=== PATIENT | male | born 1990 | race American Indian/Alaskan Native ===

== ENCOUNTER 2018-09-08 09:46 | Emergency (ER) | payer OTHER ==
--- NOTE | 2018-09-08 13:10 | Emergency Department Report ---
- General Chief Complaint: Upper Respiratory Infection Stated Complaint: SORE THROAT Time Seen by Provider: 09/08/18 13:05 Source: patient Mode of arrival: Ambulatory Limitations: No Limitations - History of Present Illness Initial Comments: Patient is a 28-year-old -[place] male who is complaining of congestion cough sore throat and facial pain for approximately 1 week. Patient states cough is productive of green sputum. MD Complaint: cough, sore throat, nasal congestion, sinus pain (right sided) -: week(s) (1) Severity scale (0 -10): 5 Quality: aching Consistency: constant Improves With: nothing Associated Symptoms: chills, headache, rhinorrhea, nasal congestion, cough. denies: fever, myalgias, diaphoresis, stiff neck, chest pain, shortness of breath, abdominal pain, nausea, vomiting, diarrhea, rash, confusion, right sweats, weight loss - Related Data Previous Rx's Medication Instructions Recorded Last Taken Type Amoxicillin/Potassium Clav 1 each PO BID #14 tablet 09/08/18 Unknown Rx [Augmentin 875-125 Tablet] Fluticasone [Flonase] 1 spray NS QDAY #1 bottle 09/08/18 Unknown Rx predniSONE [Deltasone] 20 mg PO QDAY #5 tab 09/08/18 Unknown Rx traMADol [Ultram] 50 mg PO Q6HR PRN #12 tablet 09/08/18 Unknown Rx Allergies Allergy/AdvReac Type Severity Reaction Status Date / Time No Known Allergies Allergy Unverified 09/08/18 09:48 ED Review of Systems ROS: Stated complaint: SORE THROAT Other details as noted in HPI Comment: All other systems reviewed and negative ED Past Medical Hx - Past Medical History Previous Medical History?: No - Surgical History Past Surgical History?: No - Social History Smoking Status: Never Smoker Substance Use Type: None - Medications Home Medications: Home Medications Medication Instructions Recorded Confirmed Last Taken Type Amoxicillin/Potassium Clav 1 each PO BID #14 tablet 09/08/18 Unknown Rx [Augmentin 875-125 Tablet] Fluticasone [Flonase] 1 spray NS QDAY #1 bottle 09/08/18 Unknown Rx predniSONE [Deltasone] 20 mg PO QDAY #5 tab 09/08/18 Unknown Rx traMADol [Ultram] 50 mg PO Q6HR PRN #12 tablet 09/08/18 Unknown Rx ED Physical Exam - General Limitations: No Limitations General appearance: alert, in no apparent distress - Head Head exam: Present: atraumatic, normocephalic - Eye Eye exam: Present: normal appearance - ENT ENT exam: Present: mucous membranes moist, other (right tenderness is mild) - Neck Neck exam: Present: normal inspection - Respiratory Respiratory exam: Present: normal lung sounds bilaterally. Absent: respiratory distress, wheezes, rales, rhonchi - Cardiovascular Cardiovascular Exam: Present: regular rate, normal rhythm. Absent: systolic murmur, diastolic murmur, rubs, gallop - GI/Abdominal GI/Abdominal exam: Present: soft, normal bowel sounds - Rectal Rectal exam: Present: deferred - Extremities Exam Extremities exam: Present: normal inspection - Back Exam Back exam: Present: normal inspection - Neurological Exam Neurological exam: Present: alert, oriented X3 - Psychiatric Psychiatric exam: Present: normal affect, normal mood - Skin Skin exam: Present: warm, dry, intact, normal color. Absent: rash ED Course Vital Signs 09/08/18 09:51 Temperature 98.5 F Pulse Rate 84 Respiratory 16 Rate Blood Pressure 141/69 O2 Sat by Pulse 97 Oximetry ED Medical Decision Making - Medical Decision Making clinically with acute sinusitis/bronchitis. Patient will be started on S was sent directly from be discharged home. Critical care attestation.: If time is entered above; I have spent that time in minutes in the direct care of this critically ill patient, excluding procedure time. ED Disposition Clinical Impression: Upper respiratory infection Sinusitis Qualifiers: Sinusitis location: unspecified location Chronicity: acute Recurrence: non- recurrent Qualified Code(s): J01.90 - Acute sinusitis, unspecified Disposition: - TO HOME OR SELFCARE Is pt being admited?: No Does the pt Need Aspirin: No Condition: Stable Instructions: Sinusitis (ED) Referrals: DERICK KELLEY MD [Primary Care Provider] - 3-5 Days
== END 2018-09-08 13:54 | disposition home or self-care (01) ==
LOC: ED 09:46
DX: J01.90 Acute sinusitis, unspecified (principal)

== ENCOUNTER 2019-11-16 12:41 | Emergency (ER) | payer OTHER ==
[2019-11-16 12:48] VITALS: BP 116/65
[2019-11-16] MEDS ORDERED: FAMOTIDINE 20 MG TAB PO ONE (13:27)
[2019-11-16] MEDS ORDERED: dexAMETHasone 20 MG/5 ML VIAL IM ONE (13:27)
--- NOTE | 2019-11-16 13:34 | Emergency Department Report ---
ED General Adult HPI - General Chief complaint: Allergic Reaction Stated complaint: ALLERGIC REACTION Time Seen by Provider: 11/16/19 13:27 Source: patient Mode of arrival: Ambulatory Limitations: No Limitations - History of Present Illness Initial comments: 29-year-old -[place] male presents to the emergency room stating new onset of allergic reaction today. Patient states he has had hives and a rash. He denies any shortness of breath sore throat or chest discomfort. Patient reports no new foods soaps or new detergents. Patient reports he did have Ox tail last night. -: This morning - Related Data Previous Rx's Medication Instructions Recorded Last Taken Type Amoxicillin/Potassium Clav 1 each PO BID #14 tablet 09/08/18 Unknown Rx [Augmentin 875-125 Tablet] Fluticasone [Flonase] 1 spray NS QDAY #1 bottle 09/08/18 Unknown Rx predniSONE [Deltasone] 20 mg PO QDAY #5 tab 09/08/18 Unknown Rx traMADoL [Ultram] 50 mg PO Q6HR PRN #12 tablet 09/08/18 Unknown Rx predniSONE [Deltasone] 20 mg PO QDAY 5 Days #5 tab 11/16/19 Unknown Rx Allergies Allergy/AdvReac Type Severity Reaction Status Date / Time No Known Allergies Allergy Unverified 09/08/18 09:48 ED Review of Systems ROS: Stated complaint: ALLERGIC REACTION Other details as noted in HPI Comment: All other systems reviewed and negative ED Past Medical Hx - Past Medical History Previous Medical History?: No - Surgical History Past Surgical History?: No - Social History Smoking Status: Never Smoker Substance Use Type: None - Medications Home Medications: Home Medications Medication Instructions Recorded Confirmed Last Taken Type Amoxicillin/Potassium Clav 1 each PO BID #14 tablet 09/08/18 Unknown Rx [Augmentin 875-125 Tablet] Fluticasone [Flonase] 1 spray NS QDAY #1 bottle 09/08/18 Unknown Rx predniSONE [Deltasone] 20 mg PO QDAY #5 tab 09/08/18 Unknown Rx traMADoL [Ultram] 50 mg PO Q6HR PRN #12 tablet 09/08/18 Unknown Rx predniSONE [Deltasone] 20 mg PO QDAY 5 Days #5 tab 11/16/19 Unknown Rx ED Physical Exam - General Limitations: No Limitations General appearance: alert, in no apparent distress - Head Head exam: Present: atraumatic, normocephalic - Eye Eye exam: Present: normal appearance - ENT ENT exam: Present: mucous membranes moist - Neck Neck exam: Present: normal inspection - Respiratory Respiratory exam: Present: normal lung sounds bilaterally. Absent: respiratory distress - Cardiovascular Cardiovascular Exam: Present: regular rate, normal rhythm. Absent: systolic murmur, diastolic murmur, rubs, gallop - GI/Abdominal GI/Abdominal exam: Present: soft, normal bowel sounds - Neurological Exam Neurological exam: Present: alert, oriented X3, normal gait - Psychiatric Psychiatric exam: Present: normal affect, normal mood - Skin Skin exam: Present: urticaria (Arms legs chest back) ED Course Vital Signs 11/16/19 12:45 Temperature 98 F Pulse Rate 74 Respiratory 20 Rate Blood Pressure 116/65 O2 Sat by Pulse 97 Oximetry ED Medical Decision Making - Medical Decision Making 29-year-old -[place] male presents to the emergency room stating new onset of allergic reaction today. Patient states he has had hives and a rash. He denies any shortness of breath sore throat or chest discomfort. Patient reports no new foods soaps or new detergents. Patient reports he did have Ox tail last night. Patient recently took Benadryl 1:00. We will administer Pepcid 20 mg p.o. and dexamethasone 10 mg IM. Will discharge patient on prednisone 20 mg daily for the next 5 days instructed take Benadryl every 6-8 hours as needed for rash. Instructed patient to return back to the emergency room if he has worsening rash shortness of breath chest pain. Critical care attestation.: If time is entered above; I have spent that time in minutes in the direct care of this critically ill patient, excluding procedure time. ED Disposition Clinical Impression: Allergic reaction Disposition: DC-01 TO HOME OR SELFCARE Is pt being admited?: No Does the pt Need Aspirin: No Condition: Stable Instructions: Urticaria (ED) Additional Instructions: Please complete prednisone as prescribed. Benadryl every 6-8 hours as needed. Return back to the emergency room if any worsening symptoms such as shortness of breath feeling okay throats closing chest pain or worsening rash. Prescriptions: predniSONE [Deltasone] 20 mg PO QDAY 5 Days #5 tab Referrals: SALVADOR HODGE MD [Staff Physician] - 3-5 Days
== END 2019-11-16 13:44 | disposition home or self-care (01) ==
LOC: ED 12:41
DX: T78.40XA Allergy, unspecified, initial encounter (principal); X58.XXXA Exposure to other specified factors, initial encounter
CPT/HCPCS: 96372; 99282; J1100

== ENCOUNTER 2019-11-17 09:30 | Emergency (ER) | payer OTHER ==
[2019-11-17 09:41] VITALS: BP 134/60
[2019-11-17] MEDS ORDERED: SODIUM CHLORIDE 0.9% 1000 ML 1,000 ML IV ONE (10:36)
[2019-11-17] MEDS ORDERED: diphenhydrAMINE 50 MG/ML VIAL IV ONE (10:36)
[2019-11-17] MEDS ORDERED: FAMOTIDINE 20 MG/2 ML INJ IV ONE (10:36)
[2019-11-17] MEDS ORDERED: dexAMETHasone 20 MG/5 ML VIAL IV ONE (10:36)
--- NOTE | 2019-11-17 10:46 | Emergency Department Report ---
HPI - General Chief Complaint: Allergic Reaction Time Seen by Provider: 11/17/19 10:36 ED Past Medical Hx - Past Medical History Previous Medical History?: Yes Additional medical history: allergic reaction - Surgical History Past Surgical History?: No - Social History Smoking Status: Never Smoker Substance Use Type: Non Opiate Pain, Prescribed - Medications Home Medications: Home Medications Medication Instructions Recorded Confirmed Last Taken Type Amoxicillin/Potassium Clav 1 each PO BID #14 tablet 09/08/18 Unknown Rx [Augmentin 875-125 Tablet] Fluticasone [Flonase] 1 spray NS QDAY #1 bottle 09/08/18 Unknown Rx predniSONE [Deltasone] 20 mg PO QDAY #5 tab 09/08/18 Unknown Rx traMADoL [Ultram] 50 mg PO Q6HR PRN #12 tablet 09/08/18 Unknown Rx predniSONE [Deltasone] 20 mg PO QDAY 5 Days #5 tab 11/16/19 Unknown Rx ED Review of Systems ROS: Stated complaint: ALLERGIC REACTION Other details as noted in HPI Physical Exam - Physical Exam Vital Signs: Vital Signs 11/17/19 09:37 Temperature 98.4 F Pulse Rate 86 Respiratory 16 Rate Blood Pressure 134/60 O2 Sat by Pulse 97 Oximetry ED Course Vital Signs 11/17/19 09:37 Temperature 98.4 F Pulse Rate 86 Respiratory 16 Rate Blood Pressure 134/60 O2 Sat by Pulse 97 Oximetry Critical care attestation.: If time is entered above; I have spent that time in minutes in the direct care of this critically ill patient, excluding procedure time. ED Disposition Condition: Stable Referrals: PRIMARY CARE, [Primary Care Provider] - 3-5 Days
--- NOTE | 2019-11-17 10:55 | Emergency Department Report ---
ED Allergic Reaction HPI - General Chief complaint: Allergic Reaction Stated complaint: ALLERGIC REACTION Time Seen by Provider: 11/17/19 10:36 Source: patient Mode of arrival: Ambulatory Limitations: No Limitations - History of Present Illness Initial Comments: This is a 29-year-old male nontoxic, well nourished in appearance, no acute signs of distress presents to the ED with c/o of hives x1 day. Patient stated that yesterday he had similar symptoms and has resolved. Patient stated that he has running outside and started to have symptoms this morning. Patient stated that he did not start taking Prednisone as prescribed to him yesterday. Patient states it is itching and redness. Patient denies any drooling, hoarseness or facial swelling. Patient denies any trauma. She denies any fever, chills, nausea, vomiting, chest pain, shortness of breath, headache, stiff neck, numbness or tingling. Patient denies any allergies or significant PMH. MD Complaint: allergic reaction, hives -: days(s) (1) Exposure: unknown Symptoms: rash, itching. denies: facial swelling, lip swelling, difficulty swallowing, difficulty breathing, orolingual swelling, hoarseness, syncopy, dizziness, nausea, vomiting, abdominal pain Severity: mild Treatment Prior to Arrival: none Previous Allergy History: none - Related Data Previous Rx's Medication Instructions Recorded Last Taken Type Amoxicillin/Potassium Clav 1 each PO BID #14 tablet 09/08/18 Unknown Rx [Augmentin 875-125 Tablet] Fluticasone [Flonase] 1 spray NS QDAY #1 bottle 09/08/18 Unknown Rx predniSONE [Deltasone] 20 mg PO QDAY #5 tab 09/08/18 Unknown Rx traMADoL [Ultram] 50 mg PO Q6HR PRN #12 tablet 09/08/18 Unknown Rx predniSONE [Deltasone] 20 mg PO QDAY 5 Days #5 tab 11/16/19 Unknown Rx Allergies Allergy/AdvReac Type Severity Reaction Status Date / Time No Known Allergies Allergy Unverified 09/08/18 09:48 ED Review of Systems ROS: Stated complaint: ALLERGIC REACTION Other details as noted in HPI Constitutional: denies: chills, fever Eyes: denies: eye pain, eye discharge, vision change ENT: denies: ear pain, throat pain Respiratory: denies: cough, shortness of breath, wheezing Cardiovascular: denies: chest pain, palpitations Endocrine: no symptoms reported Gastrointestinal: denies: abdominal pain, nausea, diarrhea Genitourinary: denies: urgency, dysuria Musculoskeletal: denies: back pain, joint swelling, arthralgia Skin: rash, pruritus. denies: lesions Neurological: denies: headache, weakness, paresthesias Psychiatric: denies: anxiety, depression Hematological/Lymphatic: denies: easy bleeding, easy bruising ED Past Medical Hx - Past Medical History Previous Medical History?: Yes Additional medical history: allergic reaction - Surgical History Past Surgical History?: No - Social History Smoking Status: Never Smoker Substance Use Type: Non Opiate Pain, Prescribed - Medications Home Medications: Home Medications Medication Instructions Recorded Confirmed Last Taken Type Amoxicillin/Potassium Clav 1 each PO BID #14 tablet 09/08/18 Unknown Rx [Augmentin 875-125 Tablet] Fluticasone [Flonase] 1 spray NS QDAY #1 bottle 09/08/18 Unknown Rx predniSONE [Deltasone] 20 mg PO QDAY #5 tab 09/08/18 Unknown Rx traMADoL [Ultram] 50 mg PO Q6HR PRN #12 tablet 09/08/18 Unknown Rx predniSONE [Deltasone] 20 mg PO QDAY 5 Days #5 tab 11/16/19 Unknown Rx ED Physical Exam - General Limitations: No Limitations General appearance: alert, in no apparent distress - Head Head exam: Present: atraumatic, normocephalic - Eye Eye exam: Present: normal appearance - Neck Neck exam: Present: normal inspection, full ROM, other (uvula midline. no angioedema.). Absent: tenderness, meningismus, lymphadenopathy - Respiratory Respiratory exam: Present: normal lung sounds bilaterally. Absent: respiratory distress, wheezes, rales, rhonchi, stridor, chest wall tenderness, accessory muscle use, decreased breath sounds, prolonged expiratory - Cardiovascular Cardiovascular Exam: Present: regular rate, normal rhythm, normal heart sounds. Absent: bradycardia, tachycardia, irregular rhythm, systolic murmur, diastolic murmur, rubs, gallop - Extremities Exam Extremities exam: Present: normal inspection, full ROM - Back Exam Back exam: Present: normal inspection, full ROM - Neurological Exam Neurological exam: Present: alert, oriented X3, normal gait - Psychiatric Psychiatric exam: Present: normal affect, normal mood - Skin Skin exam: Present: dry, intact, normal color, rash, urticaria. Absent: cyanosis, diaphoretic, erythema, vesicles, petechiae, pallor, abrasion, ecchymosis ED Course Vital Signs 11/17/19 09:37 Temperature 98.4 F Pulse Rate 86 Respiratory 16 Rate Blood Pressure 134/60 O2 Sat by Pulse 97 Oximetry - Reevaluation(s) Reevaluation #1: 11/17/19 10:56 Patient is speaking in full sentences with no signs of distress noted. ED Medical Decision Making - Medical Decision Making This is a 29-year-old male that presents with allergic reaction. Patient is stable was examined by me. There is no facial swelling. No angioedema. There is no cellulitis. No hoarseness. Patient received 1 L normal saline, Benadryl, Decadron, and Pepcid in the ED IV. Patient was instructed not to operate any machinery after discharge due to possible drowsiness of Benadryl. Patient stated that a family member will drive patient home after discharge. Patient was instructed to take prednisone as prescribed to him during his previous visit yesterday.. Patient was referred to Follow-up with a primary care doctor in 3- 5 days or if symptoms worsen and continue return to emergency room as soon as possible. At time of discharge, the patient does not seem toxic or ill in appearance. No acute signs of distress noted. Patient agrees to discharge treatment plan of care. No further questions noted by the patient. Critical care attestation.: If time is entered above; I have spent that time in minutes in the direct care of this critically ill patient, excluding procedure time. ED Disposition Clinical Impression: Allergic reaction Qualifiers: Encounter type: initial encounter Qualified Code(s): T78.40XA - Allergy, unspecified, initial encounter Disposition: DC-01 TO HOME OR SELFCARE Is pt being admited?: No Does the pt Need Aspirin: No Condition: Stable Instructions: Urticaria (ED) Additional Instructions: Follow-up with a primary care doctor in 3-5 days or if symptoms worsen and continue return to emergency room as soon as possible. Continue taking medication as prescribed through during your visit yesterday. Referrals: FOREIGN DACOSTA MD [Primary Care Provider] - 3-5 Days SALVADOR HODGE MD [Staff Physician] - 3-5 Days [facility] [Provider Group] - 3-5 Days Forms: Work/School Release Form(ED)
== END 2019-11-17 12:24 | disposition home or self-care (01) ==
LOC: ED 09:30
DX: T78.40XA Allergy, unspecified, initial encounter (principal); X58.XXXA Exposure to other specified factors, initial encounter
CPT/HCPCS: 96374; 96375; 99282; J1100; J1200; J7030

== ENCOUNTER 2021-10-25 12:42 | Emergency (ER) | payer SELFPAY ==
[2021-10-25 19:16] LABS: Hematocrit 38.7 % (35.5-45.6); Hemoglobin 12.9 gm/dl (11.8-15.2); Mean Corpuscular HGB Conc 33 % (32-34); Mean Corpuscular Volume 84 fl (84-94); Platelet Count 372 K/mm3 (140-440); Red Cell Distribution Width 14.6 % (13.2-15.2)
[2021-10-25 19:21] LABS: Alanine Aminotransferase 158 units/L (7-56); BUN/Creatinine Ratio 10; Blood Urea Nitrogen 10 mg/dL (9-20); Calcium 9.1 mg/dL (8.4-10.2); Hemolysis Index 8
--- NOTE | 2021-10-25 20:49 | Ultrasound Report ---
ULTRASOUND ABDOMEN, COMPLETE INDICATION: elevated lft's. COMPARISON: None available. FINDINGS: Pancreas: Pancreas is not well-visualized. Abdominal Aorta: Normal. IVC: Normal. Liver: Normal. The liver measures 14.7 cm in size. Normal hepatic echotexture. Main portal vein is pa tent with appropriate direction of flow. Gallbladder: Normal. No evidence of gallstones or gallbladder wall thickening. Bile ducts: Normal. Common Bile Duct measures 4 mm. Right Kidney: Normal. Left Kidney: Normal. Spleen: Normal. Free fluid: None. Additional Findings: None. IMPRESSION: 1. No sonographic abnormality of the abdomen. Signer Name: Sanjuana Álvarez MD Signed: 10/25/2021 8:45 PM Workstation Name: [id number]
[2021-10-25 20:58] LABS: Hepatitis B Surface Antigen Non-Reactive (Negative); Hepatitis C Virus Antibody Non-Reactive (NonReactive)
--- NOTE | 2021-10-25 21:13 | Emergency Department Report ---
ED General Adult HPI - General Chief complaint: Skin/Abscess/Foreign Body Stated complaint: FOOT/LYMPH NODE SWOLLEN Time Seen by Provider: 10/25/21 18:07 Source: patient Mode of arrival: Ambulatory Limitations: No Limitations - History of Present Illness Initial comments: 31 yo black male with no pmh presents to ed for evaluation of swollen lymph nodes in his neck. He states that 2 weeks ago, he cut his finger and few days later, he developed swelling to his bilateral cervical lymph nodes. He states that the swelling has improved some but has not gone down completely. He states that he had some increased fatigue for a few days when it initially happened but that has since resolved. He states that nodes are not painful. He denies fever, n/v/d, abdominal pain, cough, congestion, and rhinorhea. He denies any sick contacts. MD Complaint: swollen lymph nodes -: Gradual, week(s) (2) Location: neck (bilateral cervical) Severity scale (0 -10): 0 Associated Symptoms: denies: confusion, chest pain, cough, diaphoresis, headaches, loss of appetite, malaise, nausea/vomiting, rash, seizure, shortness of breath, syncope, weakness Treatments Prior to Arrival: none - Related Data Previous Rx's Medication Instructions Recorded Last Taken Type Amoxicillin/Potassium Clav 1 each PO BID #14 tablet 09/08/18 Unknown Rx [Augmentin 875-125 Tablet] Fluticasone [Flonase] 1 spray NS QDAY #1 bottle 09/08/18 Unknown Rx predniSONE [Deltasone] 20 mg PO QDAY #5 tab 09/08/18 Unknown Rx traMADoL [Ultram] 50 mg PO Q6HR PRN #12 tablet 09/08/18 Unknown Rx predniSONE [Deltasone] 20 mg PO QDAY 5 Days #5 tab 11/16/19 Unknown Rx Allergies Allergy/AdvReac Type Severity Reaction Status Date / Time No Known Allergies Allergy Unverified 09/08/18 09:48 ED Review of Systems ROS: Stated complaint: FOOT/LYMPH NODE SWOLLEN Other details as noted in HPI Comment: All other systems reviewed and negative Constitutional: denies: chills, diaphoresis, fever, malaise, weakness Eyes: denies: vision change ENT: denies: throat pain, congestion Respiratory: denies: cough, orthopnea, shortness of breath, SOB with exertion, SOB at rest, stridor, wheezing Cardiovascular: denies: chest pain, palpitations, dyspnea on exertion, orthopn ea, edema, syncope, paroxysmal nocturnal dyspnea Endocrine: denies: no symptoms reported Gastrointestinal: denies: abdominal pain, nausea, vomiting, diarrhea, hematemesis, melena, hematochezia Genitourinary: denies: urgency, dysuria, frequency, hematuria, discharge, testicular pain Musculoskeletal: denies: back pain, joint swelling, arthralgia, myalgia Skin: denies: rash, lesions Neurological: denies: headache, weakness, numbness, paresthesias, confusion, abnormal gait, vertigo Psychiatric: denies: anxiety Hematological/Lymphatic: denies: easy bleeding, easy bruising ED Past Medical Hx - Past Medical History Previous Medical History?: Yes Additional medical history: allergic reaction - Surgical History Past Surgical History?: No - Social History Smoking Status: Never Smoker Substance Use Type: Non Opiate Pain, Prescribed - Medications Home Medications: Home Medications Medication Instructions Recorded Confirmed Last Taken Type Amoxicillin/Potassium Clav 1 each PO BID #14 tablet 09/08/18 Unknown Rx [Augmentin 875-125 Tablet] Fluticasone [Flonase] 1 spray NS QDAY #1 bottle 09/08/18 Unknown Rx predniSONE [Deltasone] 20 mg PO QDAY #5 tab 09/08/18 Unknown Rx traMADoL [Ultram] 50 mg PO Q6HR PRN #12 tablet 09/08/18 Unknown Rx predniSONE [Deltasone] 20 mg PO QDAY 5 Days #5 tab 11/16/19 Unknown Rx ED Physical Exam - General Limitations: No Limitations General appearance: alert, in no apparent distress - Head Head exam: Present: atraumatic, normocephalic - Eye Eye exam: Present: normal appearance, PERRL, EOMI. Absent: scleral icterus, conjunctival injection, periorbital swelling, periorbital tenderness - ENT ENT exam: Present: normal exam, normal orophraynx, mucous membranes moist, TM's normal bilaterally, normal external ear exam - Neck Neck exam: Present: full ROM, lymphadenopathy (bilaterally, left > right ). Absent: tenderness, meningismus - Respiratory Respiratory exam: Present: normal lung sounds bilaterally. Absent: respiratory distress, wheezes, rales, rhonchi, stridor, chest wall tenderness - Cardiovascular Cardiovascular Exam: Present: regular rate, normal heart sounds - GI/Abdominal GI/Abdominal exam: Present: soft, normal bowel sounds. Absent: distended, tenderness, guarding, rebound, rigid, mass, pulsatile mass - Extremities Exam Extremities exam: Present: normal inspection, full ROM, normal capillary refill. Absent: tenderness, pedal edema, joint swelling, calf tenderness - Back Exam Back exam: Present: normal inspection, full ROM. Absent: tenderness, CVA tenderness (R), CVA tenderness (L), vertebral tenderness - Neurological Exam Neurological exam: Present: alert, oriented X3, CN II-XII intact, normal gait, reflexes normal. Absent: motor sensory deficit - Psychiatric Psychiatric exam: Present: normal affect, normal mood - Skin Skin exam: Present: warm, dry, intact, normal color ED Course Vital Signs 10/25/21 10/26/21 13:26 01:04 Temperature 98.3 F Pulse Rate 92 H 80 Respiratory 16 16 Rate Blood Pressure 139/76 134/71 [Left] O2 Sat by Pulse 97 96 Oximetry ED Medical Decision Making - Lab Data Result diagrams: 10/25/21 18:35 10/25/21 18:35 - Radiology Data Radiology results: report reviewed US abdomen complete: Pancreas: Pancreas is not well-visualized. Abdominal Aorta: Normal. IVC: Normal. Liver: Normal. The liver measures 14.7 cm in size. Normal hepatic echotexture. Main portal vein is patent with appropriate direction of flow. Gallbladder: Normal. No evidence of gallstones or gallbladder wall thickening. Bile ducts: Normal. Common Bile Duct measures 4 mm. Right Kidney: Normal. Left Kidney: Normal. Spleen: Normal. Free fluid: None. Additional Findings: None. IMPRESSION: 1. No sonographic abnormality of the abdomen. - Medical Decision Making 31 yo black male with no pmh presents to ed for evaluation of swollen lymph nodes in his neck. He states that 2 weeks ago, he cut his finger and few days later, he developed swelling to his bilateral cervical lymph nodes. He states that the swelling has improved some but has not gone down completely. He states that he had some increased fatigue for a few days when it initially happened but that has since resolved. He states that nodes are not painful. He denies fever, n/v/d, abdominal pain, cough, congestion, and rhinorhea. He denies any sick contacts. No gross abnormalities noted on exam. Patient noted to have elevated LFT's on chemistry, US abdomen complete ruled out cholodocholithiasis and liver damage and is without any acute abnormalities noted and hepatitis panel non reactive. Discussed with patient that acute processes are ruled out but he needs to follow up with hem/onc and or GI for lymph node biopsy and further evaluation of LFT's if no improvement. He is advised to return to ed if he develops pain or fever or has any other concerning symptoms. He verbalized understanding of and agreement with plan of care. Laboratory Last Values WBC 4.7 K/mm3 (4.5-11.0) 10/25/21 18:35 RBC 4.60 M/mm3 (3.65-5.03) 10/25/21 18:35 Hgb 12.9 gm/dl (11.8-15.2) 10/25/21 18:35 Hct 38.7 % (35.5-45.6) 10/25/21 18:35 MCV 84 fl (84-94) 10/25/21 18:35 MCH 28 pg (28-32) 10/25/21 18:35 MCHC 33 % (32-34) 10/25/21 18:35 RDW 14.6 % (13.2-15.2) 10/25/21 18:35 Plt Count 372 K/mm3 (140-440) 10/25/21 18:35 Sodium 135 mmol/L (137-145) L 10/25/21 18:35 Potassium 4.3 mmol/L (3.6-5.0) 10/25/21 18:35 Chloride 98.4 mmol/L (98-107) 10/25/21 18:35 Carbon Dioxide 26 mmol/L (22-30) 10/25/21 18:35 Anion Gap 15 mmol/L 10/25/21 18:35 BUN 10 mg/dL (9-20) 10/25/21 18:35 Creatinine 1.0 mg/dL (0.8-1.3) 10/25/21 18:35 Estimated GFR > 60 ml/min 10/25/21 18:35 BUN/Creatinine Ratio 10 % 10/25/21 18:35 Glucose 85 mg/dL (75-100) 10/25/21 18:35 Calcium 9.1 mg/dL (8.4-10.2) 10/25/21 18:35 Total Bilirubin 0.40 mg/dL (0.1-1.2) 10/25/21 18:35 AST 42 units/L (5-40) H 10/25/21 18:35 ALT 158 units/L (7-56) H 10/25/21 18:35 Alkaline Phosphatase 301 units/L (35-129) H 10/25/21 18:35 C-Reactive Protein 1.70 mg/dL (0.00-1.30) H 10/25/21 18:35 Total Protein 9.1 g/dL (6.3-8.2) H 10/25/21 18:35 Albumin 4.0 g/dL (3.9-5) 10/25/21 18:35 Albumin/Globulin Ratio 0.8 % 10/25/21 18:35 Hepatitis A IgM Ab Non-reactive (NonReactive) 10/25/21 19:43 Hep Bs Antigen Non-reactive (Negative) 10/25/21 19:43 Hep B Core IgM Ab Non-reactive (NonReactive) 10/25/21 19:43 Hepatitis C Antibody Non-reactive (NonReactive) 10/25/21 19:43 Critical care attestation.: If time is entered above; I have spent that time in minutes in the direct care of this critically ill patient, excluding procedure time. ED Disposition Clinical Impression: Lymphadenopathy, Elevated liver enzymes Disposition: 01 HOME / SELF CARE / HOMELESS Is pt being admited?: No Does the pt Need Aspirin: No Condition: Stable Instructions: Liver Function Tests, Lymphadenopathy, Open Lymph Node Biopsy Additional Instructions: Follow-up with rack cleaner/oncologist and pharmacy technology instructor for further evaluation and management. Referrals: ITALO KEN MD [Staff Physician] - 3-5 Days VICKI ROBERTS PA [Physician Technical Professional] - 3-5 Days SALVADOR HODGE MD [Staff Physician] - 3-5 Days Time of Disposition: 21:12
[2021-10-26 01:05] VITALS: BP 134/71
== END 2021-10-26 01:05 | disposition home or self-care (01) ==
LOC: ED 12:42
DX: R59.1 Generalized enlarged lymph nodes (principal); R74.01 Elevation of levels of liver transaminase levels; Z98.890 Other specified postprocedural states; Z79.899 Other long term (current) drug therapy
CPT/HCPCS: 36415; 76700; 80053; 80074; 85027; 86140; 99284